=== PATIENT | female | born 1955 | race Caucasian/White ===

== ENCOUNTER → 2020-06-30 08:16 | Outpatient (CLI) | payer OTHER, MEDICARE, SELFPAY ==
--- NOTE | 2020-06-30 | DI.MG.S_ITS ---
BILATERAL DIGITAL SCREENING MAMMOGRAM 3D/2D WITH CAD: 06/30/2020 CLINICAL: Routine screening. Personal history of left breast cancer. Family history of breast cancer. Baseline by default. No prior exams were available for comparison. There are scattered fibroglandular elements in both breasts. Current study was also evaluated with a Computer Aided Detection (CAD) system. There is an irregular spiculated post-surgical scar in the left breast posterior depth superior region seen on the mediolateral oblique view only. No other significant masses, calcifications, or other findings are seen in either breast. IMPRESSION: INCOMPLETE: NEEDS ADDITIONAL IMAGING EVALUATION Irregular spiculated post-surgical scar in the left breast is indeterminate. -Comparison with prior mammograms is needed. -Otherwise, additional views with possible ultrasound are recommended. The patient was called directly by Dr. Hanks and notified that we are still waiting on prior exams. This exam was interpreted at Station ID: [id number]. NOTE: For mammograms, a report in lay terms will be sent to the patient. Approximately 15% of breast malignancies will not be visualized mammographically. In the management of a palpable breast mass, a negative mammogram must not discourage biopsy of a clinically suspicious lesion. Electronically Signed By: Thomas Hanks M.D. [facility] [place]/:07/03/2020 18:18:44 letter sent: Additional Imaging Needed ACR BI-RADS Category 0: Incomplete 3340F
== END ==
PROVIDERS: Referring Provider Internal Medicine; Visit Provider Internal Medicine
DX: Z12.31 Encounter for screening mammogram for malignant neoplasm of breast (principal); Z85.3 Personal history of malignant neoplasm of breast
CPT/HCPCS: 77063; 77067

== ENCOUNTER → 2020-09-22 09:54 | Outpatient (CLI) | payer OTHER, MEDICARE, SELFPAY ==
--- NOTE | 2020-09-22 10:01 | DI.MRI.S_ITS ---
PROCEDURE: MR SHOULDER RT WO CON INDICATIONS: Pain in right shoulder Low back pain TECHNIQUE: Noncontrast oblique coronal T2 fast spin echo with fat saturation, oblique sagittal T1 spin echo and T2 fast spin echo with fat saturation, axial T1 spin echo and T2 fast spin echo with fat saturation through the shoulder. COMPARISON: None. FINDINGS: Image quality: Excellent. Rotator cuff: There is moderate supraspinatus and infraspinatus tendinosis. Superimposed small focal moderate grade intrasubstance tear is seen at the posterior supraspinatus tendon footprint measuring 3 mm in anterior-posterior dimension. The teres minor tendon is intact. There is moderate subscapularis tendinosis. No significant rotator cuff muscle atrophy is identified. Bones and bursae: No acute bone marrow contusions or fractures. Chronic traction cystic changes are seen at the posterosuperior humeral head near the infraspinatus tendon insertion. There is full-thickness cartilage loss involving the majority of the glenoid as well as the superomedial humeral head with subchondral cystic changes and edema. Marginal osteophytes are noted in the glenoid rim and the inferior humeral head. Moderate acromioclavicular joint degenerative changes are seen with marginal osteophyte formation and subchondral cystic changes. There is a moderate glenohumeral joint effusion. A nonedematous osseous intra-articular loose body is seen in the axillary recess measuring 2.1 x 1.0 x 1.0 cm. A trace amount of subacromial/subdeltoid bursal fluid is present. Capsule and soft tissues: There is circumferential labral degeneration and degenerative tearing. The long head of the biceps tendon demonstrates mild tendinosis of the intra-articular portion. There is partial effacement of the normal fat in the rotator interval. The inferior glenohumeral ligament is normal in thickness. IMPRESSION: 1. Moderate to severe glenohumeral degenerative changes including full-thickness cartilage loss, subchondral cystic changes and edema, and marginal osteophyte formation. 2. Moderate acromioclavicular osteoarthrosis. 3. Small moderate grade partial intrasubstance tear at the posterior footprint of the supraspinatus tendon measuring 0.3 cm in anterior-posterior dimension. Findings are superimposed on moderate rotator cuff tendinosis involving the supraspinatus, infraspinatus, and subscapularis tendons. 4. Chronic circumferential labral degeneration and degenerative tearing. 5. Mild tendinosis of the biceps long head tendon. 6. Moderate glenohumeral effusion with a in nonedematous intra-articular loose body measuring up to 2.1 cm in maximum dimension. Trace subacromial/subdeltoid bursal effusion or bursitis. Dictated by: Rian Velasco M.D. on 09/24/2020 at 8:35 Approved by: Rian Velasco M.D. on 09/24/2020 at 9:16
--- NOTE | 2020-09-22 10:02 | DI.MRI.S_ITS ---
PROCEDURE: MR LUMBAR SPINE WO CON INDICATIONS: Pain in right shoulder Low back pain TECHNIQUE: Noncontrast sagittal T1 spin echo and T2 fast echo, sagittal STIR, axial T1 and T2 fast spin echo through the lumbar spine. In cases with scoliosis, additional coronal T2 fast spin echo may be performed. COMPARISON: None. FINDINGS: Image quality: Excellent. Alignment and Curvature: There is trace L2-L3 retrolisthesis. There is approximately 22? of convex left lumbar spine scoliosis. Bone Marrow: Reactive endplate changes noted adjacent to the L1-L2, L2-L3, L3-L4, L4-L5 and L5-S1 discs. No acute vertebral body compression fractures. Spinal Cord: Conus medullaris terminates at the L1 level. Visualized cord demonstrates normal signal and size. Paraspinous Soft Tissues: No paravertebral masses. T12-L1: Loss of disc signal and height. Moderate, diffuse disc bulge. Mild bilateral facet hypertrophy. Mild narrowing of the central canal. Mild bilateral neural foraminal narrowing. No neural compression. L1-L2: Loss of disc signal and height. Mild, diffuse disc bulge. Moderate bilateral facet hypertrophy. Moderate narrowing of the central canal. Moderate right mild left facet hypertrophy. No neural compression. L2-L3: Loss of disc signal and height. Moderate, diffuse disc bulge. Moderate bilateral facet hypertrophy. Moderate to severe narrowing of the central canal with crowding of the nerve roots of the cauda equina. Moderate bilateral neural foraminal narrowing. No neural compression. L3-L4: Loss of disc signal. Moderate, diffuse disc bulge. Severe bilateral facet hypertrophy. Severe ligamentum flavum hypertrophy. Severe narrowing of the central canal with compression of the nerve roots of the cauda equina. Moderate bilateral neural foraminal narrowing. L4-L5: Loss of disc signal. Mild, diffuse disc bulge. Severe bilateral facet hypertrophy. Moderate narrowing of the central canal. Moderate right and severe left neural foraminal narrowing with compression of the exiting left L4 nerve root. Fissure noted in the posterior annulus. L5-S1: Loss of disc signal. Mild, diffuse disc bulge. Moderate bilateral facet hypertrophy. Mild narrowing of the central canal. Severe left neural foraminal narrowing with compression of the exiting left L5 nerve root. Fissure noted in posterior annulus. IMPRESSION: 1. Convex left scoliosis. 2. Multilevel degenerative disc disease. 3. Multilevel facet arthropathy. 4. Severe L3-L4 central canal narrowing with compression of the nerve roots of the cauda equina. 5. Severe left L4-L5 and L5-S1 neural foraminal narrowing with compression of the exiting left L4 nerve root in the exiting left L5 nerve root. Dictated by: Madeline Mckinley MD, PhD on 09/24/2020 at 11:45 Approved by: Madeline Mckinley MD, PhD on 09/24/2020 at 11:50
== END ==
PROVIDERS: Referring Provider Internal Medicine; Visit Provider Internal Medicine
DX: M54.5 Low back pain (principal); M25.511 Pain in right shoulder; M19.011 Primary osteoarthritis, right shoulder; M75.111 Incomplete rotator cuff tear or rupture of right shoulder, not specified as traumatic; M51.36 Other intervertebral disc degeneration, lumbar region; M51.37 Other intervertebral disc degeneration, lumbosacral region; M47.816 Spondylosis without myelopathy or radiculopathy, lumbar region; M47.817 Spondylosis without myelopathy or radiculopathy, lumbosacral region; M48.061 Spinal stenosis, lumbar region without neurogenic claudication; M48.07 Spinal stenosis, lumbosacral region; M41.86 Other forms of scoliosis, lumbar region
CPT/HCPCS: 72148; 73221

== ENCOUNTER → 2020-10-06 12:05 | Outpatient (CLI) | payer OTHER, MEDICARE, SELFPAY ==
--- NOTE | 2020-10-06 | DI.MRI.S_ITS ---
PROCEDURE: MR KNEE RT WO CON INDICATIONS: Pain right knee TECHNIQUE: Noncontrast sagittal PD fast spin echo and T2 fast spin echo with fat saturation, sagittal 3-D FLASH with fat saturation; coronal T1 spin echo and PD fast spin echo with fat saturation, and axial PD fast spin echo with fat saturation through the knee. COMPARISON: [facility], MR, MR HIP RT WO CON, 10/06/2020, 12:30. FINDINGS: Severely limited examination due to metallic artifacts from postsurgical changes (total knee arthroplasty). No definitive fractures. There is a small knee joint effusion. There is mild quadriceps and patellar tendinitis. IMPRESSION: 1. 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 No definitive fractures. Radiographs of the knee may be helpful. 2. Small knee joint effusion. 3. Mild quadriceps and patellar tendinitis. Dictated by: Trell Lopez M.D. on 10/08/2020 at 9:05 Approved by: Trell Lopez M.D. on 10/08/2020 at 13:24
--- NOTE | 2020-10-06 | DI.MRI.S_ITS ---
PROCEDURE: MR HIP RT WO CON INDICATIONS: Pain right hip. TECHNIQUE: Noncontrast coronal T1 spin echo and STIR through the bony pelvis. Coronal and axial T2 fast spin echo with fat saturation, sagittal T1 spin echo, and oblique axial T2 fast spin echo with fat saturation through the hip. COMPARISON: None. FINDINGS: Image quality: Excellent. Bones and joints: Bone marrow of the pelvic ring and proximal femurs show normal signal throughout. Moderate right hip joint periarticular osteophyte formation. No intraosseous lesions or fractures. No avascular necrosis of the femoral heads. The visualized lower lumbar spine appears normally aligned. Tendons and ligaments: The gluteus medius and minimus tendons appear intact, without associated muscle atrophy. The nearby proximal iliotibial band also appears intact. The iliopsoas tendon appears intact, without adjacent bursal fluid collections or evidence for impingement syndrome. The origin of the hamstring tendon is intact at the ischial tuberosity, as well as the associated sacrotuberous ligament. The straight and reflected heads of the rectus femoris muscle origin appear intact, as well as the conjoint tendon. The ligamentum teres appears intact where visualized. Labrum and cartilage: There is diffuse degenerative tearing of the right hip labrum. Cartilage surface of the femoral head appears of normal thickness. The alpha angle of the femur is within normal limits at less than 55 degrees. Soft tissues: Visualized muscles demonstrate normal bulk and internal signal. Quadratus femoris muscle demonstrates no internal edema to suggest ischiofemoral impingement. The proximal sciatic neurovascular bundle appears normal adjacent to the hamstring tendons. No free pelvic fluid. Bladder wall thickness is normal. Genitourinary structures and bowel loops appear normal where visualized. IMPRESSION: 1. Right hip osteoarthritis associated with degenerative labral tearing. 2. No fracture or osseous lesion. Dictated by: Jerrica Rizvi M.D. on 10/08/2020 at 9:32 Approved by: Jerrica Rizvi M.D. on 10/08/2020 at 9:44
== END ==
PROVIDERS: PCP Internal Medicine; Referring Provider Internal Medicine; Visit Provider Internal Medicine
DX: M25.561 Pain in right knee (principal); M25.511 Pain in right shoulder; M16.11 Unilateral primary osteoarthritis, right hip; S73.191A Other sprain of right hip, initial encounter; M25.461 Effusion, right knee; M76.51 Patellar tendinitis, right knee; Z96.651 Presence of right artificial knee joint
CPT/HCPCS: 73721

== ENCOUNTER → 2021-03-31 11:24 | Outpatient (CLI) | payer OTHER, MEDICARE, SELFPAY ==
[2021-03-31 12:39] LABS: COVID19 -Nasal RAPID Negative (Negative)
== END ==
PROVIDERS: PCP Internal Medicine; Referring Provider Physician Assistant; Visit Provider Physician Assistant
DX: Z20.822 Contact with and (suspected) exposure to COVID-19 (principal)
CPT/HCPCS: 87635

== ENCOUNTER → 2021-07-10 10:59 | Outpatient (CLI) | payer OTHER, MEDICARE, SELFPAY ==
--- NOTE | 2021-07-10 | DI.MG.S_ITS ---
BILATERAL DIGITAL SCREENING MAMMOGRAM 3D/2D WITH CAD: 07/10/2021 CLINICAL: Routine screening. Personal history of left breast cancer. Family history of breast cancer. Comparison is made to exams dated: 06/30/2020 mammogram - [facility], 05/01/2019 mammogram, and 02/22/2018 mammogram - outside location. There are scattered fibroglandular elements in both breasts. Current study was also evaluated with a Computer Aided Detection (CAD) system. No significant masses, calcifications, or other findings are seen in either breast. There has been no significant interval change. IMPRESSION: NEGATIVE There is no mammographic evidence of malignancy. A 1 year screening mammogram is recommended. This exam was interpreted at Station ID: [id number]. NOTE: For mammograms, a report in lay terms will be sent to the patient. Approximately 15% of breast malignancies will not be visualized mammographically. In the management of a palpable breast mass, a negative mammogram must not discourage biopsy of a clinically suspicious lesion. Electronically Signed By: Ritesh Brewer M.D., jr/conchita:07/10/2021 12:57:41 letter sent: Normal Exam ACR BI-RADS Category 1: Negative 3341F
== END ==
PROVIDERS: PCP Internal Medicine; Referring Provider Internal Medicine; Visit Provider Internal Medicine
DX: Z12.31 Encounter for screening mammogram for malignant neoplasm of breast (principal); Z85.3 Personal history of malignant neoplasm of breast; Z80.3 Family history of malignant neoplasm of breast
CPT/HCPCS: 77063; 77067

== ENCOUNTER 2025-08-08 06:32 | Day surgery (SDC) | payer OTHER, MEDICARE, SELFPAY ==
[2025-06-07 11:48] VITALS: BMI 29.8
[2025-08-03 08:03] VITALS: BMI 29.9
[2025-08-08] VITALS (7 sets, daily range): BP systolic 144–168; BP diastolic 70–88; PULSE 70–95; RESP 17–32; TEMP 36.3–36.6; O2SAT 90–100
--- NOTE | 2025-08-08 07:03 | PM.PREOP ---
Pre-operative Note COVID-19 COVID-19 status: Not tested Interval Note History & Physical reviewed/Exam performed by Physician: Yes Changes to H&P: No H&P completed within 30 days and has changed as indicated here:: No changes ASA Class (for procedural sedation): IV
[2025-08-08] MEDS: LACTATED RINGERS 1,000 ML 42 ML IV (07:30)
[2025-08-08] MEDS: LIDOCAINE VISCOUS 2% 15 ML SOLUTION 5 ML PO (07:42)
--- NOTE | 2025-08-08 08:32 | PM.BRONCH.1 ---
Operative Date/Time/Diagnoses Date of procedure: 08/08/25 Time of procedure: 08:33 Pre-op diagnosis: ILD Post-op diagnosis: same Procedure & Clinicians Procedure(s): Bronchioalveolar lavage Same procedure(s) as scheduled: Yes Artillery Officer: Gerardo Rios Consent: Patient Anesthesia Type: General Operative Notes Procedure Details & Findings: After informed consent and an identification pause, the patient was placed in the supine position and intubated by anesthesiology. The bronchoscope was inserted through the endotracheal tube.? The bronchoscope was then inserted into the airway.? Inspection was performed on the left and right bronchial trees. Limited inspection normal. The yana was: Sharp The airways were: Patent The mucosa appeared: normal Secretions were: Minimal Additional procedures completed as follows:: Bronchoalveolar lavage was performed in left lingula lobe. 150 mL of 0.9% sterile saline was instilled and 25 mL return aspirated and sent for analysis microbiologic. Was EBUS used during the procedure: No Estimated Blood Loss (mL): 0 Complications: none Condition: Stable Impression: Uncomplicated bronchoscopy Medications used: Per anesthesiology Specimen(s): BAL to cytology and BAL to micro Coding Bronchoscopy: 54600 - Bronch incl fluoro w/ bronchial alveolar lavage
--- NOTE | 2025-08-08 09:34 | SUR.PHASEII ---
Rests quietly in bed. SR up X2. s/o at bedside. O2 at 4L, 97% sat. Sipping gingerale.
[2025-08-08 11:09] LABS: Abnormal Cells Body Fluid 5 %; Comment Body Fluid ABNORMAL CELLS SEEN:; MESO/MACRO/MONO Body Fluid 95 %
== END 2025-08-08 10:00 | disposition home or self-care (01) ==
PROVIDERS: PCP Internal Medicine; Referring Provider Internal Medicine; Visit Provider Internal Medicine
PROC: 0BJ08ZZ Inspection of Tracheobronchial Tree, Via Natural or Artificial Opening Endoscopic (ICD-10-PCS; CPT 31622; principal; 2025-08-08 07:45)
DX: J84.9 Interstitial pulmonary disease, unspecified (principal); M06.9 Rheumatoid arthritis, unspecified; Z87.891 Personal history of nicotine dependence; I10 Essential (primary) hypertension; E11.9 Type 2 diabetes mellitus without complications; E78.5 Hyperlipidemia, unspecified; K21.9 Gastro-esophageal reflux disease without esophagitis; M48.00 Spinal stenosis, site unspecified; I44.7 Left bundle-branch block, unspecified; Z99.81 Dependence on supplemental oxygen; Z79.84 Long term (current) use of oral hypoglycemic drugs
CPT/HCPCS: 31624; 82962; 87070; 87101; 87116; 87205; 87206; 87556; 87798; 87801; J2250; J2704; J3010; J7120